=== PATIENT | female | born 1950 | race Caucasian/White ===

== ENCOUNTER 2017-09-06 07:51 | Emergency (ER) | payer MEDICARE, OTHER ==
[~2017-09-06] VITALS: Ht 165.1 cm; Wt 73.5 kg
[~2017-09-06 07:51] MED LIST: CALCIUM 500 +1 EAC5 PO; FISH OIL 1,0001 EAC7 PO; FLEXERIL PO; FOLIC ACID1 MG PO; TREXALL5 MG PO; ULTRAM 50MG TAB50 MG PO; VITAMIN D10000 UNIT PO
[2017-09-06] MEDS ORDERED: LISINOPRIL5 MG PO (08:06)
[2017-09-06] MEDS ORDERED: ACCUNEB SO1.25 MG/1 INH (08:07)
[2017-09-06] MEDS ORDERED: QVAR REDIHALE10.6 G1 INH (08:07)
[2017-09-06] MEDS ORDERED: NORCO 5-325 TA1 EACH PO (08:34)
[2017-09-06 09:01] VITALS: BP 121/58
== END 2017-09-06 09:02 | disposition home or self-care (01) ==
LOC: M.ERS 07:51
DX: S90.31XA Contusion of right foot, initial encounter (principal); J45.909 Unspecified asthma, uncomplicated; I10 Essential (primary) hypertension; M06.9 Rheumatoid arthritis, unspecified; Z90.710 Acquired absence of both cervix and uterus; Z88.2 Allergy status to sulfonamides; Z88.1 Allergy status to other antibiotic agents; W18.39XA Other fall on same level, initial encounter; Y93.89 Activity, other specified; Y92.89 Other specified places as the place of occurrence of the external cause; Y99.8 Other external cause status